=== PATIENT | male | born 1970 | race Caucasian/White ===

== ENCOUNTER 2024-05-06 17:20 | Emergency (ER) | payer OTHER, SELFPAY ==
[2024-05-06 17:22] VITALS: BP 163/78; PULSE 77; RESP 18; TEMP 36.9; O2SAT 99; BMI 23.3
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
[2024-05-06] MEDS: IBUPROFEN 400 MG TABLET 800 MG PO (17:41)
[2024-05-06] MEDS: ACETAMINOPHEN 500MG TAB 1000 MG PO (17:41)
[2024-05-06] MEDS: OXYCODONE 5MG IMMEDIATE RELEASE TABLET 5 MG PO (17:41)
[2024-05-06 18:30] VITALS: BP 149/93; PULSE 67; O2SAT 100
[2024-05-06] MEDS: diazePAM 10MG/2ML SYRINGE 5 MG IM (18:38)
[2024-05-06 19:15] VITALS: BP 144/92; PULSE 59; RESP 18; TEMP 36.8; O2SAT 99
== END 2024-05-06 19:18 | disposition home or self-care (01) ==
PROVIDERS: Emergency Provider Emergency Medicine; PCP Family Medicine
DX: S39.012A Strain of muscle, fascia and tendon of lower back, initial encounter (principal); M79.602 Pain in left arm; M25.512 Pain in left shoulder; V86.79XA Person on outside of other special all-terrain or other off-road motor vehicles injured in nontraffic accident, initial encounter; Y93.89 Activity, other specified; Y92.9 Unspecified place or not applicable
CPT/HCPCS: 70450; 71045; 72125; 72128; 72131; 72170; 73060; 73080; 73090; 73110; 96372; 99284; J3360